=== PATIENT | male | born 1990 | race Caucasian/White ===

== ENCOUNTER 2018-03-28 14:49 | Emergency (ER) | payer OTHER, SELFPAY ==
[2018-03-28 14:53] VITALS: BP 121/73; PULSE 80; RESP 16; TEMP 37.1; O2SAT 99
--- NOTE | 2018-03-28 15:15 | ED.GENADUL_ITS ---
Discharge Plan Discharge Details Chief Complaint: RashLesion Primary Care Provider: NONE,NONE ED Provider: Richie Vargas Home Meds and New Rx's Prescriptions: No Action No Known Home Meds RF: 0 Medical Decision Making MDM Narrative Medical decision making narrative: 27-year-old male presents from home with right forearm abscess that drained this morning. His exam is otherwise reassuring, he has no fever. Patient consented for procedure, anesthetized, prepped and draped in standard sterile fashion and the area opened with 11 blade and approximately 1 cc of purulent fluid was expressed. The wound was packed with iodoform gauze. I will place him on a course of antibiotics. Discussed with him home care as well as return precautions. We will ask care management to assist him in establishing primary care HPI - General Adult General Date/Time Provider Initiated Documentation: 03/28/18 14:55 . Limitations to Documentation: no limitations . Information obtained by: patient and family . History of Present Illness 27 year old M presents to the emergency department with the chief complaint of Right forearm abscess, described as mild, Quality is described as aching, and is localized to the right and upper extremity. Patient reports no radiation. Patient started experiencing this day(s) and it has been constant. No relieving factors improve symptom(s), No exacerbating factors reported . Patient notes fever/chills and other (Purulent discharge). Patient did receive the following treatments prior to arrival, none HPI Narrative: 27-year-old male presents from home complaining of right arm achy swelling and erythema that he has had for days time and which drained purulent fluid this morning. 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 Denies laceration or spearing by a thorn or brush. Tetanus status is up-to-date. He states that he has otherwise recently been well Related Data Home Medications Medication Instructions Recorded Confirmed Unknown [No Known Home Meds] 09/12/15 03/28/18 Allergies Allergy/AdvReac Type Severity Reaction Status Date / Time No Known Allergies Allergy Unverified 03/28/18 14:59 General Stated Complaint: RashLesion LEVAR: 3 Review of Systems Review of Systems 5 systems reviewed and otherwise negative PFSH Social History Smoking/Tobacco Use Status: Current every day Exam Narrative Exam Narrative: GEN: awake, alert, oriented 3. Pleasant, well groomed, interactive. HEAD: Normocephalic, atraumatic ENT: Mucous membranes moist, oropharynx unremarkable, External ear exam unremarkable EYES: PERRL, EOMI NECK: Full ROM, no VALDO, no menigismus CHEST/RESP: Nontender, clear to auscultation bilateral, no wheeze/rhonchi/rales CARDIOVASCULAR: RRR, no murmur, rub betty. 2+ Rad pulse bilateral EXT: Full ROM, no edema. There is raised, erythematous lesion on the mid ulnar forearm, right. There is a central area of necrosis the patient states had purulent discharge. 2+ radial pulse bilaterally. Sensation intact throughout the upper extremity appear Neuro: Grossly normal neurologic exam, conversant, interactive. Psych: Speech fluent, thoughts congruent, affect normal Course Vital Signs Temperature 37.1 C 03/28/18 14:53 Pulse 80 03/28/18 14:53 Respiratory Rate 16 03/28/18 14:53 Blood Pressure 121/73 03/28/18 14:53 Pulse Oximetry 99 03/28/18 14:53 Temperature 37.1 C 03/28/18 14:53 Pulse 80 03/28/18 14:53 Respiratory Rate 16 03/28/18 14:53 Blood Pressure 121/73 03/28/18 14:53 Pulse Oximetry 99 03/28/18 14:53 Procedures Abscess I/D Site: Upper Extremity Side (if applicable): Right Local Anesthetic: Lidocaine 1% Technique: Incised with #11 Blade Amount of fluid expressed (mL): 1 Packing used?: Plain
[2018-03-28 15:27] VITALS: BP 121/73; PULSE 80; RESP 16; TEMP 37.1; O2SAT 99
== END 2018-03-28 15:30 | disposition home or self-care (01) ==
LOC: ER 15:32
PROVIDERS: Emergency Provider Emergency Medicine
DX: L02.413 Cutaneous abscess of right upper limb (principal)
CPT/HCPCS: 10060; 99283

== ENCOUNTER 2019-06-30 16:56 | Emergency (ER) | payer SELFPAY ==
[2019-06-30] VITALS (20 sets, daily range): BP systolic 122–135; BP diastolic 62–75; PULSE 83–119; RESP 10–38; TEMP 37.4; O2SAT 96–99
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
[2019-06-30 17:17] LABS: Abs Immature Grans 0.02 k/cumm (0.0-0.09); Absolute Basophil Count 0.02 k/cumm (0.0-0.2); Absolute Eosinophil Count 0.08 k/cumm (0.0-0.7); Absolute Lymphocyte Count 1.71 k/cumm (1.2-3.4); Absolute Monocyte Count 1.05 k/cumm (0.11-0.7); Absolute Neutrophil Count 5.97 k/cumm (1.2-6.7); Basophils % 0.2; Eosinophils % 0.9; HCT 42.7 % (40.0-50.0); HGB 14.2 g/dL (13.5-17.5); Immature Grans % 0.2; Lymphocytes % 19.3; Mean Corp. HGB Concentration 33.3 g/dL (32.0-36.0); Mean Corpuscular Hemoglobin 28.9 pg (27.0-33.0); Mean Corpuscular Volume 86.8 fL (80-95); Mean Platelet Volume 10.3 fL (8.0-11.0); Monocytes % 11.9; Neutrophils % 67.5; Platelet Count 225 x1000/uL (130-400); RBC 4.92 m/cumm (4.50-6.00); White Blood Cell Count 8.85 k/cumm (4.4-10.8)
[2019-06-30] MEDS: Normal Saline 1,000 ML 1000 ML IV (17:20)
[2019-06-30 17:28] LABS: ETHANOL BLOOD < 3.0 mg/dL (<3)
[2019-06-30 17:32] LABS: PTT Activated 23.5 sec (21.0-31.4); Prothrombin Time 10.5 sec (9.3-11.0)
[2019-06-30 17:35] LABS: ALT 23 U/L (16-63); AST 28 U/L (15-37); Albumin 4.2 g/dL (3.4-5.0); Anion Gap 9.8 mmol/L (3-11); BUN 16 mg/dL (7-18); Bilirubin, Total 0.7 mg/dL (0.2-1.0); CO2 25.2 mmol/L (21.0-32.0); CREATININE 1.04 mg/dL (0.70-1.30); Calcium 8.7 mg/dL (8.5-10.1); Chloride 104 mmol/L (98-107); Glucose 102 mg/dL (74-106); Potassium 3.6 mmol/L (3.5-5.1); Sodium 139 mmol/L (136-145); Total Protein 7.6 g/dL (6.4-8.2)
[2019-06-30 17:43] LABS: Troponin I < 0.05 ng/Ml (<0.06)
[2019-06-30 17:46] LABS: Alkaline Phosphatase 83 U/L (46-116)
[2019-06-30] MEDS: Normal Saline Flush 10 ML SYR IVP (17:48)
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
[2019-06-30] MEDS: Ibuprofen 600 MG TAB PO (18:31)
[2019-06-30] MEDS: Acetaminophen 500 MG TAB 1000 MG PO (18:31)
== END 2019-06-30 18:55 | disposition home or self-care (01) ==
PROVIDERS: Emergency Provider Emergency Medicine
DX: S06.0X9A Concussion with loss of consciousness of unspecified duration, initial encounter (principal); R51 Headache; S00.511A Abrasion of lip, initial encounter; V43.52XA Car driver injured in collision with other type car in traffic accident, initial encounter
CPT/HCPCS: 36415; 80053; 93005; 96360; 99285; 70450; 72125; 80320; 84484; 85025; 85610; 85730; 93010; 99284

== ENCOUNTER 2019-07-08 19:06 | Emergency (ER) | payer SELFPAY ==
[2019-07-08 19:12] VITALS: BP 134/86; PULSE 100; RESP 16; TEMP 36.2; O2SAT 98
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
[2019-07-08 21:03] VITALS: BP 126/77; PULSE 81; TEMP 36.9; O2SAT 98
[2019-07-08] MEDS: Acetaminophen 325 MG TAB 650 MG PO (21:12)
[2019-07-08] MEDS: Ibuprofen 600 MG TAB PO (21:12)
== END 2019-07-08 21:20 | disposition home or self-care (01) ==
PROVIDERS: Emergency Provider Student in an Organized Health Care Education/Training Program
DX: F07.81 Postconcussional syndrome (principal); G44.319 Acute post-traumatic headache, not intractable; R11.0 Nausea; R53.83 Other fatigue
CPT/HCPCS: 99284; 70450

== ENCOUNTER 2022-07-03 19:16 | Outpatient (REF) | payer OTHER, SELFPAY | END 2022-07-03 19:17 | disposition home or self-care (01) | LOC: LBN 19:16 | PROVIDERS: Visit Provider Physician Assistant | DX: J02.9 Acute pharyngitis, unspecified (principal) | CPT/HCPCS: 87077; 87070 ==